=== PATIENT | female | born 1945 | race Caucasian/White ===

== ENCOUNTER 2016-11-10 08:41 | Emergency (ER) | payer OTHER ==
[2016-11-10 08:53] VITALS: RESP 18
--- NOTE | 2016-11-10 09:11 | CPEKG ---
Heart Rate: 81 RR Interval: 741 P-R Interval: 160 QRSD Interval: 108 QT Interval: 356 QTC Interval: 414 P Rialto: 72 QRS Rialto: -63 T Wave [place]to: 85 EKG Severity - ABNORMAL ECG - EKG Impression: SINUS RHYTHM EKG Impression: LEFT ANTERIOR FASCICULAR BLOCK Electronically Signed By: Dallas Christianson 11-Nov-2016 11:57:31
--- NOTE | 2016-11-10 09:13 | EDPHY ---
H & P Stated Complaint: cough Time Seen by Provider: 11/10/16 09:10 HPI/ROS: HPI: 71-year-old female presents to emergency department with chief concern cough, fluid in lungs. Reports onset of productive cough several days ago with popping and squeaking in my lungs 2 nights ago, worsening last night. Symptoms associated with shortness of breath, weakness, intermittent nausea. Reports temp 99.6 at home yesterday. Denies dizziness, chest pain, abdominal pain, vomiting, diarrhea, rash. No aggravating or alleviating factors. Has a history of pneumonia x6. No personal history of coronary artery disease. Paternal grandfather had an PA. Up-to-date with flu shot and pneumonia vaccine. Primary care provider Dr. Lynda Ayoub. Took amoxicillin within the past 2 months for tooth extraction. ROS:10 point review of systems is negative other than as stated in HPI Source: Patient Exam Limitations: No limitations - Personal History Current Tetanus/Diphtheria Vaccine: Unsure - Medical/Surgical History Hx Asthma: No Hx Chronic Respiratory Disease: No Hx Diabetes: No Hx Cardiac Disease: No Hx Renal Disease: No Hx Cirrhosis: No Hx Alcoholism: No Hx HIV/AIDS: No Hx Splenectomy or Spleen Trauma: No Other PMH: hypothyroid, recurrent pneumonia, rt breast ca lumpectomy & radiation , encephalitis 1969, GERD, mono 1969, OA, BBB l knee replacement - Family History Significant Family History: No pertinent family hx. No: Asthma, Heart disease - Social History Smoking Status: Former smoker Alcohol Use: None Drug Use: None Additional Social History: Lives alone - Physical Exam Exam: Vital signs temp 36.4, heart rate 88, respiratory rate 18, blood pressure 120/ 83, 91% on room air General: Awake, alert, calm, cooperative. No acute distress. Head: Normalocephalic. Atraumatic. EENT: PERRLA. EOMI. No pallor or injection. Anicteric. No nystagmus. No injection. TMs intact bilaterally with normal landmarks. Minimal nasal congestion with mildly erythematous nasal turbinates bilaterally. Oropharynx without redness, exudates, or lesions. Tonsils 2+ bilaterally, no exudates. Neck: Supple, nontender. No lymphadenopathy. Full range of motion. No meningismus. No JVD. No carotid bruit. Respiratory: Breathing unlabored. Rhonchi, rales, expiratory wheezes bilaterally. CV: Chest nontender, atraumatic. Heart rate regular. No murmur, distal pulses 2+ bilaterally. Brisk cap refill all extremities. No peripheral edema. GI: Abdomen soft, nontender. Bowel sounds normoactive and positive x4 quadrants. : No CVA or flank tenderness. Neuro: Alert. Oriented x 3. Speech clear. Nonfocal cranial nerves throughout. Sensation intact all extremities. Skin: Skin warm, dry, intact. No rashes. Skin turgor normal. Extremities: Full range of motion in all 4 extremities. Strength 5+ all extremities. Constitutional: Initial Vital Signs Temperature (C) 36.4 C 11/10/16 08:50 Heart Rate 88 11/10/16 08:50 Respiratory Rate 18 11/10/16 08:50 Blood Pressure 120/83 H 11/10/16 08:50 O2 Sat (%) 91 L 11/10/16 08:50 O2 Delivery Mode Room Air Allergies/Adverse Reactions: phenytoin sodium [From Dilantin] Allergy (Severe, Verified 11/10/16 08:47) Hives phenytoin sodium extended [From Dilantin] Allergy (Severe, Verified 11/10/16 08: 47) Hives Home Medications: Medication Instructions Recorded Gluc 2Kcl/Chondr/Thu Hy/Hy AC 1 each PO BID 10/20/14 [Glucosamine & Chondroitin Cap] Herbals/Supplements -Info Only 1 ea PO AD 10/20/14 Ipratropium/Albuterol [Combivent 1 inh IH BID PRN 10/20/14 Respimat Inhal [place](*)] Lansoprazole 30 mg PO DAILY 10/20/14 Levothyroxine [Synthroid 50 mcg 50 mcg PO DAILY@08 10/20/14 (*)] Loratadine [Claritin 10 mg] 10 mg PO DAILY 10/20/14 Albuterol Hfa Anes Only [Proair 2 puffs IH QID PRN #1 mdi 11/10/16 Hfa Anes Only] levOFLOXACIN [levAQUIN (*)] 750 mg PO DAILY #6 tab 11/10/16 predniSONE 20 mg PO DAILY #11 tab 11/10/16 Medical Decision Making ED Course/Re-evaluation: 2114:71-year-old nontoxic afebrile female presents to emergency department with cough, shortness of breath, fluid in my lungs.. Oxygen saturation 91% on room air. Patient has no dizziness and no chest pain. EKG shows sinus rhythm, rate 81, L AF be. No evidence of acute ischemia. Chest x-ray, labs, influenza swab pending. 1040: White count 8290 with 75.2% neutrophils. Lactic acid 1.6. Basic metabolic panel unremarkable. BNP 284. DuoNeb given. Wheezes slightly improved. Given 60 mg oral prednisone. On room air, oxygen saturation 95-97% with ambulation. Patient given 1st dose of p.o. Levaquin here. She has been counseled regarding black box warning with Levaquin. She has been counseled regarding need for follow-up with primary care tomorrow. She verbalizes understanding and agrees to plan. She stable for discharge. Chest x-ray shows reactive airway disease, small consolidation retro cardiac. Reviewed by myself. Final report pending at time this dictation. Differential Diagnosis: Differential diagnosis includes but is not limited to influenza, bronchitis, pneumonia, reactive airway disease, CHF - Data Points Laboratory Results: Laboratory Results 11/10/16 09:17 11/10/16 09:17 11/10/16 11/10/16 09:26 09:17 WBC 8.29 10^3/uL (3.80-9.50) RBC 4.33 10^6/uL (4.18-5.33) Hgb 14.0 g/dL (12.6-16.3) Hct 40.2 % (38.0-47.0) MCV 92.8 fL (81.5-99.8) MCH 32.3 pg (27.9-34.1) MCHC 34.8 g/dL (32.4-36.7) RDW 14.2 % (11.5-15.2) Plt Count 181 10^3/uL (150-400) MPV 11.6 fL (8.7-11.7) Neut % (Auto) 75.2 H % (39.3-74.2) Lymph % (Auto) 12.8 L % (15.0-45.0) Stevens % (Auto) 7.4 % (4.5-13.0) Eos % (Auto) 4.0 % (0.6-7.6) Baso % (Auto) 0.4 % (0.3-1.7) Nucleat RBC Rel Count 0.0 % (0.0-0.2) Absolute Neuts (auto) 6.24 10^3/uL (1.70-6.50) Absolute Lymphs (auto) 1.06 10^3/uL (1.00-3.00) Absolute Monos (auto) 0.61 10^3/uL (0.30-0.80) Absolute Eos (auto) 0.33 10^3/uL (0.03-0.40) Absolute Basos (auto) 0.03 10^3/uL (0.02-0.10) Absolute Nucleated RBC 0.00 10^3/uL (0-0.01) Immature Gran % 0.2 % (0.0-1.1) Immature Gran # 0.02 10^3/uL (0.00-0.10) VBG Lactic Acid 1.6 mmol/L (0.7-2.1) Sodium 142 mEq/L (134-144) Potassium 3.7 mEq/L (3.5-5.2) Chloride 105 mEq/L (97-110) Carbon Dioxide 26 mEq/l (22-31) Anion Gap 11 mEq/L (8-16) BUN 13 mg/dL (7-23) Creatinine 0.8 mg/dL (0.6-1.0) Estimated GFR > 60 Glucose 90 mg/dL (70-100) Calcium 9.7 mg/dL (8.5-10.4) NT-Pro-B Natriuret Pep 284 H pg/mL (0-125) Influenza Typ A,B (DFA) NEGATIVE FOR FLU (NEGATIVE) Medications Given: Discontinued Medications Albuterol/Ipratropium (Duoneb) 3 ml IH EDNOW ONE Stop: 11/10/16 09:48 Last Admin: 11/10/16 10:19 Dose: 3 ml Departure - Departure Disposition: Home, Routine, Self-Care Clinical Impression: Community acquired pneumonia Reactive airway disease Qualifiers: Asthma severity: unspecified severity Asthma complication type: uncomplicated Qualifier Code: (J45.909) Unspecified asthma, uncomplicated Condition: Good Instructions: Community Acquired Pneumonia (ED), Reactive Airways Disease (ED) Additional Instructions: Plan: Antibiotic as prescribed Use your albuterol inhaler 2 puffs every 4-6 hours for shortness of breath, wheezing. Prednisone as prescribed Please follow up with primary care provider tomorrow for recheck without fail-- When you call to schedule appointment, please let the office know you are an " ER follow up" appointment" Should her symptoms worsen in any way return promptly for recheck to the emergency department Referrals: Yoselin Ayoub MD [Primary Care Provider] - As per Instructions Prescriptions: Albuterol Hfa Anes Only [Proair Hfa Anes Only] 2 puffs IH QID PRN #1 mdi PRN Reason: Short Of Breath/Dyspnea levOFLOXACIN [levAQUIN (*)] 750 mg PO DAILY #6 tab predniSONE 20 mg PO DAILY #11 tab
[2016-11-10 09:31] LABS: % IMMATURE GRANULYOCYTES 0.2 % (0.0-1.1); ABSOLUTE IMMATURE GRANULOCYTES 0.02 10^3/uL (0.00-0.10); ADD DIFF? NO; ADD MORPH? NO; ADD SCAN? NO; ATYPICAL LYMPHOCYTE FLAG 10 (0-99); FRAGMENT RBC FLAG 0 (0-99); HEMATOCRIT 40.2 % (38.0-47.0); LEFT SHIFT FLG 0 (0-99); LIPEMIA HEMOLYSIS FLAG 90 (0-99); MEAN CELL HEMOGLOBIN 32.3 pg (27.9-34.1); MEAN CELL HEMOGLOBIN CONCENTR. 34.8 g/dL (32.4-36.7); MEAN CELL VOLUME 92.8 fL (81.5-99.8); MEAN PLATELET VOLUME 11.6 fL (8.7-11.7); PLATELET CLUMPS FLAG 20 (0-99); PLATELET COUNT 181 10^3/uL (150-400); RED BLOOD CELL COUNT 4.33 10^6/uL (4.18-5.33); RED CELL DISTRIBUTION WIDTH 14.2 % (11.5-15.2)
[2016-11-10 09:41] LABS: ANION GAP 11 mEq/L (8-16); CALCIUM 9.7 mg/dL (8.5-10.4); CARBON DIOXIDE 26 mEq/l (22-31); CHLORIDE 105 mEq/L (97-110); CREATININE 0.8 mg/dL (0.6-1.0); GLOMERULAR FILTRATION RATE > 60; GLUCOSE 90 mg/dL (70-100); POTASSIUM 3.7 mEq/L (3.5-5.2); SODIUM 142 mEq/L (134-144)
[2016-11-10] MEDS ORDERED: IPRATROPIUM/ALBUTEROL 3 ML DEYVIAL IH ONE (09:47)
[2016-11-10] MEDS ORDERED: predniSONE 20 MG TAB PO ONE (10:38)
[2016-11-10 10:39] VITALS: BP 138/88; PULSE 81; TEMP 98.2; O2SAT 94
--- NOTE | 2016-11-10 10:40 | DX ---
PA and Lateral Chest November 10, 2016, at 0924 Hours Clinical Indication: Shortness of breath Comparison: October 04, 2012. Findings: Minimal peribronchial thickening is again present. There is a small amount of atelectatic o r consolidative change in the retrocardiac space. There is linear atelectatic change at the left cost ophrenic angle. Mild scoliotic change of the spine is present. Atherosclerotic disease of the aorta i s again noted. Impressions 1. Mild airways disease. 2. Small area of retrocardiac consolidation or atelectasis. Results relayed by Dr. Redd to Radha Zheng NP, November 10, 2016, 1023 hours.
== END 2016-11-10 11:12 | disposition home or self-care (01) ==
DX: J45.909 Unspecified asthma, uncomplicated (principal); J18.9 Pneumonia, unspecified organism; Z87.891 Personal history of nicotine dependence